=== PATIENT | female | born 1995 | race African-American/Black ===

== ENCOUNTER 2018-10-28 23:45 | Inpatient (IN) ==
--- NOTE | 2018-10-29 00:18 | PROVIDER DOCUMENTATION ---
HPI-Female /OB/Breast - General Chief Complaint: Female Stated Complaint: 38 WEEKS PREG/CONTRACTIONS Time Seen by Provider: 10/29/18 00:02 Source: reports: patient Allergies/Adverse Reactions: Patient Allergies Allergy/AdvReac Type Severity Reaction Status Date / Time No Known Allergies Allergy Verified 01/01/18 15:37 Home Medications: Home Medication List Medication Instructions Recorded Confirmed Last Taken Type NK [No Home Medications] 07/21/17 07/21/17 Unknown History - History of Present Illness-Female /OB Nature of Presenting Problem: 22 yr old F, , at 38 wks gestation, presenting with complaints of contractions and bloody show this evening. The pt reports contractions are now 3-5 minutes apart. Pt denies gush of fluid. She reports adequate movement. Pt receives care at [facility], with Dr. Rosen, and has arrangements to deliver in [place]. Does patient report she is ?: Yes Quality of Pain: reports: other (contractionscontractions 3-5 min apart) Onset/Duration: reports: just prior to arrival Timing: reports: still present Vaginal Bleeding Amount: Small/Light Leakage of Fluid: none - LMP/ History : 1 Para: 0 Care: OB doctor OB Doctor/Clinic: Dr. Rosen CURRENT Problems: none Contractions/Pelvic Pain: reports: strong, regular Contraction Frequency (every____min): 3 Review of Systems - Adult - REVIEW OF SYSTEMS - ADULT Constitutional: reports: no symptoms reported Eyes: reports: no symptoms reported Ears, Nose, Mouth & Throat: reports: no symptoms reported Cardiovascular: reports: no symptoms reported Respiratory: reports: no symptoms reported Gastrointestinal: reports: abdominal pain Genitourinary: reports: no symptoms reported Musculoskeletal: reports: no symptoms reported Integumentary: reports: no symptoms reported Neurological: reports: no symptoms reported Psychiatric: reports: no symptoms reported Past History - Adult - PAST MEDICAL HISTORY-ADULT Review of Records: reports: Nursing Assessment Review Major Childhood Illnesses: reports: denies history Cardiovascular: reports: denies history Respiratory: reports: denies history Gastrointestinal: reports: denies history Obstetrical/Gynecological: reports: denies history Genitourinary: reports: denies history Musculoskeletal: reports: denies history Neurological: reports: denies history Psychiatric: reports: denies history - FAMILY HISTORY Family History: reviewed, not pertinent Physical Exam-General - PHYSICAL EXAM-ADULT Initial Vital Signs Reviewed: Yes - CONSTITUTIONAL General Appearance: appears well, alert, no apparent distress - EYES Eyes: PERRL/EOMI - HEAD, EARS, NOSE, MOUTH & THROAT HENMT: normocephalic/atraumatic, moist mucous membranes - RESPIRATORY Respiratory: chest non-tender, lungs clear, normal breath sounds - CARDIOVASCULAR Cardiovascular: regular rate, rhythm - GASTROINTESTINAL (ABDOMEN) Abdominal Exam: other (gravid abdomen) - MUSCULOSKELETAL Extremity: non-tender, no pedal edema, no calf tenderness - SKIN Integumentary: warm/dry - NEUROLOGIC Neurologic: grossly normal - PSYCHIATRIC Psych/Mental Status: normal mood/affect, oriented x 3 Progress - PLAN OF CARE/RESULTS Progress/Plan/Lab Results: Vital Signs - 8 hr 10/28/18 23:47 Temperature 98.1 F Pulse Rate 82 Respiratory Rate 19 Blood Pressure 145/77 O2 Sat by Pulse Oximetry 98 Laboratory Results - last 24 hr 10/29/18 00:12 WBC 13.02 H RBC 3.90 L Hgb 14.9 Hct 42.2 MCV 108.2 H MCH 38.2 H MCHC 35.3 RDW Std Deviation 13.0 Plt Count 242 MPV 9.4 Immature Gran % (Auto) 0.5 Neut % (Auto) 73.6 Lymph % (Auto) 15.7 L [place] % (Auto) 8.8 Eos % (Auto) 1.2 Baso % (Auto) 0.2 Immature Gran # (Auto) 0.07 H Neut # (Auto) 9.58 H Lymph # (Auto) 2.04 [place] # (Auto) 1.15 H Eos # (Auto) 0.16 Baso # (Auto) 0.02 Orders Category Date Time Status CBC WITH ELECTRONIC DIFF [HEME] Stat Lab 10/29/18 00:12 Completed CMP [COMPREHENSIVE METABOLIC PANEL] [CHEM] Stat Lab 10/29/18 00:12 Received RHOGAM WORKUP [BBK] Stat Lab 10/29/18 00:12 Received TROPONIN T Stat Lab 10/29/18 00:12 Received TYPE & SCREEN [BBK] Stat Lab 10/29/18 00:12 Results UA NIMS W/REFLEX CULT [URINALYSIS] Stat Lab 10/29/18 00:20 Uncollected Result Diagrams: 10/29/18 00:12 - CONSULTS/PCP/HOSPITALIST Notification #1 *Consult/PCP/Hospitalist*: Dr. Pelayo Time Discussed: 00:15 Consult Disposition: other (transfer to [facility]) Departure - Departure Date of Disposition Decision: 10/29/18 Time of Disposition Decision: 01:07 DIAGNOSIS: Abdominal pain during in third trimester Disposition: OTHER 70 Certified Medical Emergency: Emergent Condition: Stable Referrals and Follow-Ups: Park Rosen MD [Primary Care Provider] - - Critical Care Note This patient required my direct & personal management of CC.: No Attestation - Physician/ JETT Attestation Patient care was provided by Advanced Practice Provider:: No The physician spent face to face time with patient:: Yes Advanced Practice Provider documentation review:: Supervising physician onsite and consulted in the evaluation and care of this patient. The physician did have a face to face encounter with the patient.
[2018-10-29 00:44] LABS: BASO# 0.02 X1000 (0.0-0.2); BASO% 0.2 % (0.0-0.8); EOS# 0.16 X1000 (0.0-0.7); EOS% 1.2 % (0.0-10.0); HEMATOCRIT 42.2 % (37.0-47.0); HEMOGLOBIN 14.9 g/dL (12.0-16.0); IMM GRAN# 0.07 X1000 (0.0-0.04); IMM GRAN% 0.5 % (0.0-0.5); LYMPH# 2.04 X1000 (1.2-3.4); LYMPH% 15.7 % (20.5-51.1); MCH 38.2 PG (27-31); MCHC 35.3 g/dL (33-37); MCV 108.2 FL (81-99); MONO# 1.15 X1000 (0.11-0.59); MONO% 8.8 % (1.7-9.3); MPV 9.4 FL (7.4-10.4); NEUT# 9.58 X1000 (1.4-6.5); NEUT% 73.6 % (42.2-75.2); PLT 242 X1000 (130-400); WBC 13.02 X1000 (4.8-10.8)
[2018-10-29 01:16] LABS: AGAP 14; ALB/GLOB RATIO 1.4; ALBUMIN 4.2 g/dL (3.5-5.0); ALKALINE PHOSPHATASE 148 U/L (32-104); BUN 7 mg/dL (8-22); CALCIUM 9.9 mg/dL (8.8-10.2); CHLORIDE 103 mmol/L (98-107); COSMO 273; CREATININE 0.6 mg/dL (0.5-0.9); ESTIMATED GFR > 60; GLUCOSE 87 mg/dL (70-104); GOT 21 U/L (10-30); GPT 15 U/L (10-36); POTASSIUM 3.8 mmol/L (3.5-5.1); SODIUM 138 mmol/L (136-145); TCO2 21 mmol/L (25-35); TOTAL BILIRUBIN 0.61 mg/dL (0.20-1.00); TOTAL PROTEIN 7.2 g/dL (6.3-8.3)
[2018-10-29] MEDS ORDERED: PHENERGAN IV PRN (02:35)
[2018-10-29] MEDS ORDERED: SODIUM CHLORIDE 0.9% INJ PRN (02:45)
[2018-10-29] MEDS ORDERED: PERCOCET-5 PO PRN (02:46)
[2018-10-29] MEDS ORDERED: LR 1,000 ML IV SCH ×2 (03:00→08:00)
[2018-10-29 04:36] LABS: URINE SOURCE VOIDED
[2018-10-29 04:49] LABS: BILIRUBIN URINE NEGATIVE (NEGATIVE); BLOOD URINE NEGATIVE (NEGATIVE); CLARITY CLEAR (CLEAR); COLOR YELLOW; GLUCOSE URINE NEGATIVE (NEGATIVE); KETONE URINE 3+(Large) mg/dL (NEGATIVE); LEUKOCYTES URINE TRACE (NEGATIVE); NITRITE URINE NEGATIVE (NEGATIVE); PROTEIN URINE NEGATIVE (NEGATIVE); SP GRAVITY URINE 1.015; UROBILINOGEN URINE 1 mg/dL
[2018-10-29 05:04] LABS: UR AMPHETAMINES QUAL NONE DETECTED (NONE DETECT); UR BARBITUATES QUAL NONE DETECTED (NONE DETECT); UR BENZODIAZEPIN QUAL NONE DETECTED (NONE DETECT); UR CANNABINOIDS QUAL NONE DETECTED (NONE DETECT); UR COCAINE QUAL NONE DETECTED (NONE DETECT); UR METHADONE QUAL NONE DETECTED (NONE DETECT); UR METHAMPHETAMINE QUAL NONE DETECTED (NONE DETECT); UR OPIATES QUAL NONE DETECTED (NONE DETECT); UR OXYCODONE QUAL NONE DETECTED (NONE DETECT); UR PCP QUAL NONE DETECTED (NONE DETECT); UR PROPOXYPHENE QUAL NONE DETECTED (NONE DETECT); UR TCA QUAL NONE DETECTED (NONE DETECT)
[2018-10-29] MEDS ORDERED: DEMEROL IV ONE (05:48)
[2018-10-29] MEDS ORDERED: PEPCID IV PRN (08:00)
[2018-10-29] MEDS ORDERED: SODIUM CHLORIDE 0.9% INJ SCH (08:00)
[2018-10-29] MEDS ORDERED: KEFZOL 1 GM/D5W 1 GM/50 ML IVPB IV PRN (08:00)
[2018-10-29] MEDS ORDERED: PEPCID PO ONE (08:00)
[2018-10-29] MEDS ORDERED: TYLENOL PO PRN (08:00)
[2018-10-29] MEDS ORDERED: STADOL IV PRN (08:00)
[2018-10-29] MEDS ORDERED: PITOCIN 30 UNITS/NS 30 UNIT/500 ML IV.SOLN IV SCH ×2 (08:00→20:30)
[2018-10-29] MEDS ORDERED: LR 500 ML IV ONE (08:00)
[2018-10-29] MEDS ORDERED: REGLAN PO ONE (08:00)
[2018-10-29] MEDS ORDERED: PEPCID PO PRN (08:00)
[2018-10-29] MEDS ORDERED: ZOFRAN IV PRN (08:00)
[2018-10-29] MEDS ORDERED: NEO-SYNEPHRINE ONE (08:10)
[2018-10-29] MEDS ORDERED: FENTANYL ONE (08:10)
[2018-10-29] MEDS ORDERED: NAROPIN 0.2% ONE (08:10)
[2018-10-29] MEDS ORDERED: FENTANYL-BUPIV-NS 2 MCG-0.1% 250 ML EPIDURAL SCH (09:00)
[2018-10-29] MEDS ORDERED: XYLOCAINE-MPF 1% INJ ONE (12:22)
[2018-10-29] MEDS ORDERED: MINERAL OIL TOP ONE (12:22)
--- NOTE | 2018-10-29 14:23 | HISTORY AND PHYSICAL ---
HISTORY OF PRESENT ILLNESS: Nevaeh is a 22-year-old 1, para 0, at 38 and 3/7th weeks gestation, consistent with 18 week ultrasound, who presents to Labor and delivery in early labor. She presented at 3 cm with bloody show. Rating her pain 10/10 with contractions q.4 hours minutes and a category 1 tracing. She was watched overnight with analgesics and in the morning at 4 cm and 70% per RN. Continued bloody show. She was admitted for labor. PREVIOUS MEDICAL HISTORY: Negative. PREVIOUS SURGICAL HISTORY: Negative. HISTORY: This is the index consistent with G1 and late care. SOCIAL HISTORY: Negative for smoking, alcohol, or drugs. Single. MEDICATIONS: vitamins. ALLERGIES TO MEDICINES: None. FAMILY HISTORY: Hypertension and diabetes. DELI COOK HISTORY: Pertinent for normal Pap smear 2 years ago. PHYSICAL EXAMINATION: GENERAL: This is a well nourished, well developed young woman appearing her stated age. HEART: Regular rate and rhythm. LUNGS: Nonlabored breathing. ABDOMEN: Gravid to the xiphoid and contractions on the monitors. EXTREMITIES: Without clubbing, cyanosis, edema. The pelvic exam is 4 to 5 cm. Rupture of membranes was performed with clear blood stained fluid. ASSESSMENT: A 22-year-old 1, para 0, at 38 and 3/7th weeks gestation in labor. 1. Group B negative. 2. Rh positive. 3. Ruptured membranes, clear fluid. 4. Epidural in place. 5. Category 1 tracing. 6. Anticipate normal spontaneous vaginal delivery of estimate weigh 3500 g baby, vertex.
--- NOTE | 2018-10-29 15:11 | OB/GYN PROGRESS NOTE ---
Progress Note OB - . Patient Problems: Current Active Problems Problem Status Onset Abdominal pain during in third trimester Acute OB Progress Note: Vital Signs - 24 hr 10/28/18 23:47 10/29/18 01:09 10/29/18 01:34 Temperature 98.1 F 98.2 F 96.9 F L Pulse Rate 82 86 79 Respiratory Rate 19 16 18 Blood Pressure 145/77 121/66 136/86 O2 Sat by Pulse Oximetry 98 98 10/29/18 07:45 10/29/18 11:18 10/29/18 14:09 Temperature 97.7 F 96.5 F L 96.6 F L Pulse Rate 76 64 77 Respiratory Rate 22 17 16 Blood Pressure 112/66 125/65 136/66 O2 Sat by Pulse Oximetry 98 100 99 Laboratory Results - last 24 hr 10/29/18 10/29/18 10/29/18 00:12 00:12 00:12 WBC 13.02 H RBC 3.90 L Hgb 14.9 Hct 42.2 MCV 108.2 H MCH 38.2 H MCHC 35.3 RDW Std Deviation 13.0 Plt Count 242 MPV 9.4 Immature Gran % (Auto) 0.5 Neut % (Auto) 73.6 Lymph % (Auto) 15.7 L [place] % (Auto) 8.8 Eos % (Auto) 1.2 Baso % (Auto) 0.2 Immature Gran # (Auto) 0.07 H Neut # (Auto) 9.58 H Lymph # (Auto) 2.04 [place] # (Auto) 1.15 H Eos # (Auto) 0.16 Baso # (Auto) 0.02 Sodium 138 Potassium 3.8 Chloride 103 Carbon Dioxide 21 L Anion Gap 14 BUN 7 L Creatinine 0.6 Estimated GFR/1.73 m2 > 60 BUN/Creatinine Ratio 12 Glucose 87 Calculated Osmolality 273 Calcium 9.9 Total Bilirubin 0.61 AST 21 ALT 15 Alkaline Phosphatase 148 H Troponin T Total Protein 7.2 Albumin 4.2 Globulin 3.0 Albumin/Globulin Ratio 1.4 Urine Source Urine Color Urine Clarity Urine pH Ur Specific [place] Urine Protein Urine Ketones Urine Blood Urine Nitrite Urine Bilirubin Urine Urobilinogen Urine WBC Urine Glucose Urine Opiates Screen Ur Oxycodone Screen Urine Methadone Screen U Propoxyphene Qual Ur Barbituates Screen Ur Tricyclics Screen Ur Phencyclidine Scrn Ur Amphetamines Screen U Methamphetamines Scrn U Benzodiazepines Scrn Urine Cocaine Screen U Cannabinoids Screen Blood Type ABO/Rh O POSITIVE Blood Type Confirm Antibody Screen RhIG Candidate? NO 10/29/18 10/29/18 10/29/18 00:12 00:12 01:05 WBC RBC Hgb Hct MCV MCH MCHC RDW Std Deviation Plt Count MPV Immature Gran % (Auto) Neut % (Auto) Lymph % (Auto) [place] % (Auto) Eos % (Auto) Baso % (Auto) Immature Gran # (Auto) Neut # (Auto) Lymph # (Auto) [place] # (Auto) Eos # (Auto) Baso # (Auto) Sodium Potassium Chloride Carbon Dioxide Anion Gap BUN Creatinine Estimated GFR/1.73 m2 BUN/Creatinine Ratio Glucose Calculated Osmolality Calcium Total Bilirubin AST ALT Alkaline Phosphatase Troponin T < 0.010 Total Protein Albumin Globulin Albumin/Globulin Ratio Urine Source Urine Color Urine Clarity Urine pH Ur Specific [place] Urine Protein Urine Ketones Urine Blood Urine Nitrite Urine Bilirubin Urine Urobilinogen Urine WBC Urine Glucose Urine Opiates Screen Ur Oxycodone Screen Urine Methadone Screen U Propoxyphene Qual Ur Barbituates Screen Ur Tricyclics Screen Ur Phencyclidine Scrn Ur Amphetamines Screen U Methamphetamines Scrn U Benzodiazepines Scrn Urine Cocaine Screen U Cannabinoids Screen Blood Type O POSITIVE ABO/Rh Blood Type Confirm O POSITIVE Antibody Screen NEGATIVE RhIG Candidate? 10/29/18 10/29/18 04:18 04:18 WBC RBC Hgb Hct MCV MCH MCHC RDW Std Deviation Plt Count MPV Immature Gran % (Auto) Neut % (Auto) Lymph % (Auto) [place] % (Auto) Eos % (Auto) Baso % (Auto) Immature Gran # (Auto) Neut # (Auto) Lymph # (Auto) [place] # (Auto) Eos # (Auto) Baso # (Auto) Sodium Potassium Chloride Carbon Dioxide Anion Gap BUN Creatinine Estimated GFR/1.73 m2 BUN/Creatinine Ratio Glucose Calculated Osmolality Calcium Total Bilirubin AST ALT Alkaline Phosphatase Troponin T Total Protein Albumin Globulin Albumin/Globulin Ratio Urine Source VOIDED Urine Color YELLOW Urine Clarity CLEAR Urine pH 8.0 Ur Specific [place] 1.015 Urine Protein NEGATIVE Urine Ketones 3+(Large) A Urine Blood NEGATIVE Urine Nitrite NEGATIVE Urine Bilirubin NEGATIVE Urine Urobilinogen 1 Urine WBC TRACE A Urine Glucose NEGATIVE Urine Opiates Screen NONE DETECTED Ur Oxycodone Screen NONE DETECTED Urine Methadone Screen NONE DETECTED U Propoxyphene Qual NONE DETECTED Ur Barbituates Screen NONE DETECTED Ur Tricyclics Screen NONE DETECTED Ur Phencyclidine Scrn NONE DETECTED Ur Amphetamines Screen NONE DETECTED U Methamphetamines Scrn NONE DETECTED U Benzodiazepines Scrn NONE DETECTED Urine Cocaine Screen NONE DETECTED U Cannabinoids Screen NONE DETECTED Blood Type ABO/Rh Blood Type Confirm Antibody Screen RhIG Candidate? PN G1 Labor SVE 890/0 FHT Cat 1 Epidural in, Pt comfortable OT at 2mu/min Continue Labor
[2018-10-29] MEDS ORDERED: AMPICILLIN 2 GM/NS 2 GM/100 ML IVPB IV ONE (18:12)
--- NOTE | 2018-10-29 19:14 | OB/GYN PROGRESS NOTE ---
Progress Note OB - . Patient Problems: Current Active Problems Problem Status Onset Active labor at term Acute Abdominal pain during in third trimester Acute OB Progress Note: Vital Signs - 24 hr 10/28/18 23:47 10/29/18 01:09 10/29/18 01:34 Temperature 98.1 F 98.2 F 96.9 F L Pulse Rate 82 86 79 Respiratory Rate 19 16 18 Blood Pressure 145/77 121/66 136/86 O2 Sat by Pulse Oximetry 98 98 10/29/18 07:45 10/29/18 11:18 10/29/18 14:09 Temperature 97.7 F 96.5 F L 96.6 F L Pulse Rate 76 64 77 Respiratory Rate 22 17 16 Blood Pressure 112/66 125/65 136/66 O2 Sat by Pulse Oximetry 98 100 99 10/29/18 17:54 10/29/18 18:08 Temperature 98.2 F 99.1 F Pulse Rate 100 H Respiratory Rate Blood Pressure 134/64 O2 Sat by Pulse Oximetry 100 Laboratory Results - last 24 hr 10/29/18 10/29/18 10/29/18 00:12 00:12 00:12 WBC 13.02 H RBC 3.90 L Hgb 14.9 Hct 42.2 MCV 108.2 H MCH 38.2 H MCHC 35.3 RDW Std Deviation 13.0 Plt Count 242 MPV 9.4 Immature Gran % (Auto) 0.5 Neut % (Auto) 73.6 Lymph % (Auto) 15.7 L [place] % (Auto) 8.8 Eos % (Auto) 1.2 Baso % (Auto) 0.2 Immature Gran # (Auto) 0.07 H Neut # (Auto) 9.58 H Lymph # (Auto) 2.04 [place] # (Auto) 1.15 H Eos # (Auto) 0.16 Baso # (Auto) 0.02 Sodium 138 Potassium 3.8 Chloride 103 Carbon Dioxide 21 L Anion Gap 14 BUN 7 L Creatinine 0.6 Estimated GFR/1.73 m2 > 60 BUN/Creatinine Ratio 12 Glucose 87 Calculated Osmolality 273 Calcium 9.9 Total Bilirubin 0.61 AST 21 ALT 15 Alkaline Phosphatase 148 H Troponin T Total Protein 7.2 Albumin 4.2 Globulin 3.0 Albumin/Globulin Ratio 1.4 Urine Source Urine Color Urine Clarity Urine pH Ur Specific [place] Urine Protein Urine Ketones Urine Blood Urine Nitrite Urine Bilirubin Urine Urobilinogen Urine WBC Urine Glucose Urine Opiates Screen Ur Oxycodone Screen Urine Methadone Screen U Propoxyphene Qual Ur Barbituates Screen Ur Tricyclics Screen Ur Phencyclidine Scrn Ur Amphetamines Screen U Methamphetamines Scrn U Benzodiazepines Scrn Urine Cocaine Screen U Cannabinoids Screen Blood Type ABO/Rh O POSITIVE Blood Type Confirm Antibody Screen RhIG Candidate? NO 10/29/18 10/29/18 10/29/18 00:12 00:12 01:05 WBC RBC Hgb Hct MCV MCH MCHC RDW Std Deviation Plt Count MPV Immature Gran % (Auto) Neut % (Auto) Lymph % (Auto) [place] % (Auto) Eos % (Auto) Baso % (Auto) Immature Gran # (Auto) Neut # (Auto) Lymph # (Auto) [place] # (Auto) Eos # (Auto) Baso # (Auto) Sodium Potassium Chloride Carbon Dioxide Anion Gap BUN Creatinine Estimated GFR/1.73 m2 BUN/Creatinine Ratio Glucose Calculated Osmolality Calcium Total Bilirubin AST ALT Alkaline Phosphatase Troponin T < 0.010 Total Protein Albumin Globulin Albumin/Globulin Ratio Urine Source Urine Color Urine Clarity Urine pH Ur Specific [place] Urine Protein Urine Ketones Urine Blood Urine Nitrite Urine Bilirubin Urine Urobilinogen Urine WBC Urine Glucose Urine Opiates Screen Ur Oxycodone Screen Urine Methadone Screen U Propoxyphene Qual Ur Barbituates Screen Ur Tricyclics Screen Ur Phencyclidine Scrn Ur Amphetamines Screen U Methamphetamines Scrn U Benzodiazepines Scrn Urine Cocaine Screen U Cannabinoids Screen Blood Type O POSITIVE ABO/Rh Blood Type Confirm O POSITIVE Antibody Screen NEGATIVE RhIG Candidate? 10/29/18 10/29/18 04:18 04:18 WBC RBC Hgb Hct MCV MCH MCHC RDW Std Deviation Plt Count MPV Immature Gran % (Auto) Neut % (Auto) Lymph % (Auto) [place] % (Auto) Eos % (Auto) Baso % (Auto) Immature Gran # (Auto) Neut # (Auto) Lymph # (Auto) [place] # (Auto) Eos # (Auto) Baso # (Auto) Sodium Potassium Chloride Carbon Dioxide Anion Gap BUN Creatinine Estimated GFR/1.73 m2 BUN/Creatinine Ratio Glucose Calculated Osmolality Calcium Total Bilirubin AST ALT Alkaline Phosphatase Troponin T Total Protein Albumin Globulin Albumin/Globulin Ratio Urine Source VOIDED Urine Color YELLOW Urine Clarity CLEAR Urine pH 8.0 Ur Specific [place] 1.015 Urine Protein NEGATIVE Urine Ketones 3+(Large) A Urine Blood NEGATIVE Urine Nitrite NEGATIVE Urine Bilirubin NEGATIVE Urine Urobilinogen 1 Urine WBC TRACE A Urine Glucose NEGATIVE Urine Opiates Screen NONE DETECTED Ur Oxycodone Screen NONE DETECTED Urine Methadone Screen NONE DETECTED U Propoxyphene Qual NONE DETECTED Ur Barbituates Screen NONE DETECTED Ur Tricyclics Screen NONE DETECTED Ur Phencyclidine Scrn NONE DETECTED Ur Amphetamines Screen NONE DETECTED U Methamphetamines Scrn NONE DETECTED U Benzodiazepines Scrn NONE DETECTED Urine Cocaine Screen NONE DETECTED U Cannabinoids Screen NONE DETECTED Blood Type ABO/Rh Blood Type Confirm Antibody Screen RhIG Candidate? Patient doing well. No complaints. Denied fever, abdominal pain VSS; afebrile SVE per RN: 9.5/ +1 station FHTs: Cat 1; 140s baseline [place]: contractions q 2-4min Pitocin used for augmentation of labor -AROM done this AM. Patient recv'd 2g Ampicillin due to elevated recent temp. No overt signs/sx of IAI noted. Will continue to monitor -Patient rec'vd 50mg Demerol this AM. Informed RN to notify peds given long half-life of Demerol and anticipated delivery tonight - records reviewed
[2018-10-29] MEDS ORDERED: PITOCIN IM PRN (20:26)
[2018-10-29] MEDS ORDERED: M-M-R II VACCINE SUBQ ONE (20:26)
[2018-10-29] MEDS ORDERED: MINERAL OIL PO PRN (20:26)
[2018-10-29] MEDS ORDERED: BOOSTRIX VACCINE IM ONE (20:26)
[2018-10-29] MEDS ORDERED: PERI MEDS (DERMOPLAST/NUPERCAINAL/TUCKS) MISC PRN (20:26)
[2018-10-29] MEDS ORDERED: XYLOCAINE-MPF 1% INJ PRN (20:26)
[2018-10-29] MEDS ORDERED: CYTOTEC PO PRN (20:26)
[2018-10-29] MEDS ORDERED: NORCO-5 PO PRN (20:26)
[2018-10-29] MEDS ORDERED: BENADRYL PO PRN (20:26)
[2018-10-29] MEDS ORDERED: ZOFRAN PO PRN (20:29)
[2018-10-29] MEDS ORDERED: COLACE PO PRN (20:29)
[2018-10-29] MEDS ORDERED: PITOCIN 20 UNITS/NS 20 UNITS/1,000 ML IV.SOLN IV SCH (20:30)
[2018-10-29] MEDS ORDERED: NARCAN IV PRN (20:30)
--- NOTE | 2018-10-30 03:47 | OPERATIVE NOTE ---
PROCEDURE DATE: 10/29/2018 PREOPERATIVE DIAGNOSES: 1. A 22-year-old, G1, P0, at 38 weeks and 3 days. 2. Active labor. POSTOPERATIVE DIAGNOSES: 1. A 22-year-old, G1, P1-0-0-1, at 38 weeks and 3 days. 2. Active labor, delivered. PROCEDURE: Spontaneous vaginal delivery. ATTENDING DOCTOR: Dr. Jesse Anderson. ESTIMATED BLOOD LOSS: Approximately 100 mL. DRAINS: Bladder drained prior to delivery. PROCEDURE DETAILS: A 22-year-old, G1, P0 was admitted at 30 weeks and 3 days in late labor. The patient's labor was augmented with Pitocin and AROM. She progressed to complete dilation with epidural present and had a spontaneous vaginal delivery on 10/29/2018 at 2007 hours. The patient delivered a live female infant, 's 8 and 10 at one and five minutes respectively. Weight 6 pounds 5 ounces. Head delivered 1st in HECTOR position, followed by anterior and posterior shoulder without difficulty and atraumatically, followed by rest of body. A compound right upper extremity was noted that delivered with the shoulder. Infant was placed on maternal abdomen. Delayed umbilical cord clamping was done for approximately 30 seconds. Umbilical cord was then doubly clamped and cut, and infant was transferred to the baby warmer for further evaluation given that the patient received 50 mg of Demerol earlier this morning on 10/29/2018. IV Pitocin was initiated to facilitate uterine contractibility. Placenta was then delivered grossly intact with three-vessel cord present. Inspection of the cervix, vagina, and perineum was done revealing no lacerations. The patient tolerated delivery well. EBL approximately 100 mL. Sponge count correct x2. [facility]
[2018-10-30 07:11] LABS: BASO# 0.02 X1000 (0.0-0.2); BASO% 0.1 % (0.0-0.8); EOS# 0.06 X1000 (0.0-0.7); EOS% 0.3 % (0.0-10.0); HEMATOCRIT 39.1 % (37.0-47.0); HEMOGLOBIN 13.1 g/dL (12.0-16.0); IMM GRAN# 0.06 X1000 (0.0-0.04); IMM GRAN% 0.3 % (0.0-0.5); LYMPH# 2.25 X1000 (1.2-3.4); LYMPH% 10.3 % (20.5-51.1); MCH 37.8 PG (27-31); MCHC 33.5 g/dL (33-37); MCV 112.7 FL (81-99); MONO# 2.23 X1000 (0.11-0.59); MONO% 10.2 % (1.7-9.3); MPV 10.1 FL (7.4-10.4); NEUT% 78.8 % (42.2-75.2); PLT 249 X1000 (130-400); RBC 3.47 XMIL (4.2-5.4); RDW 13.3 % (11.5-14.5); WBC 21.92 X1000 (4.8-10.8)
[2018-10-30 07:37] LABS: BANDS 5 % (0-1); EOS 1 % (1-10); LYMPHS 10 % (21-51); MONO 8 % (1-9); SEGS 76 % (42-75)
[2018-10-30 07:39] LABS: POLYCHROM OCCASIONAL
[2018-10-30] MEDS: MOTRIN PO PRN ×2 (11:33→22:33)
[2018-10-30] MEDS: PRECARE PO SCH (11:33)
--- NOTE | 2018-10-30 12:20 | OB/GYN PROGRESS NOTE ---
Progress Note OB - . Patient Problems: Current Active Problems Problem Status Onset (spontaneous vaginal delivery) Acute OB Progress Note: Vital Signs - 24 hr 10/29/18 14:09 10/29/18 17:54 10/29/18 18:08 Temperature 96.6 F L 98.2 F 99.1 F Pulse Rate 77 100 H Respiratory Rate 16 Blood Pressure 136/66 134/64 Blood Pressure [Right Arm] O2 Sat by Pulse Oximetry 99 100 10/29/18 19:11 10/29/18 20:22 10/29/18 20:32 Temperature 99.4 F 97.5 F L Pulse Rate 87 116 H 119 H Respiratory Rate 18 16 20 Blood Pressure 139/70 150/74 Blood Pressure [Right Arm] 150/74 143/75 O2 Sat by Pulse Oximetry 100 99 100 10/29/18 20:42 10/29/18 20:52 10/29/18 21:02 Temperature Pulse Rate 110 H 99 H 104 H Respiratory Rate 20 16 18 Blood Pressure Blood Pressure [Right Arm] 148/82 149/77 150/79 O2 Sat by Pulse Oximetry 100 100 99 10/29/18 21:11 10/29/18 21:12 10/29/18 21:22 Temperature Pulse Rate 94 H 90 Respiratory Rate 18 16 18 Blood Pressure 151/69 Blood Pressure [Right Arm] 177/77 O2 Sat by Pulse Oximetry 100 100 10/30/18 00:23 10/30/18 04:00 10/30/18 08:15 Temperature 97.2 F L 97.2 F L 98 F Pulse Rate 103 H 97 H 84 Respiratory Rate 18 18 20 Blood Pressure 123/69 129/70 124/69 Blood Pressure [Right Arm] O2 Sat by Pulse Oximetry 98 98 100 Laboratory Results - last 24 hr 10/29/18 10/30/18 16:44 05:06 WBC 21.92 H RBC 3.47 L Hgb 13.1 Hct 39.1 MCV 112.7 H MCH 37.8 H MCHC 33.5 RDW Std Deviation 13.3 Plt Count 249 MPV 10.1 Immature Gran % (Auto) 0.3 Neut % (Auto) 78.8 H Lymph % (Auto) 10.3 L [place] % (Auto) 10.2 H Eos % (Auto) 0.3 Baso % (Auto) 0.1 Immature Gran # (Auto) 0.06 H Neut # (Auto) 17.30 H Lymph # (Auto) 2.25 [place] # (Auto) 2.23 H Eos # (Auto) 0.06 Baso # (Auto) 0.02 Segmented Neutrophils 76 H Band Neutrophils 5 H Lymphocytes 10 L Monocytes 8 Eosinophils 1 Polychromasia OCCASIONAL Macrocytosis 2+ RPR NON-REACTIVE S: Patient without complaints. Denied fever, chills, N/V, SOB, or chest pain. Voiding without difficulty. Formula-feeding; but desires to breast-feed. O: Gen: NAD; AAOx3 CV: RRR Pulm: CTAB; no rhonchi, wheezing, or rales Abd: soft; NTTP; non-distended; fundus firm and below umbilicus Ext: no LE TTP Labs: reviewed A&P: 22yo s/p at 38w3d due to labor, 1. PPD#1 -Discussed benefits of , tips, frequency, and expectations. Patient desires to breast-feed.
--- NOTE | 2018-10-31 07:58 | OB/GYN PROGRESS NOTE ---
Progress Note OB - . Patient Problems: Current Active Problems Problem Status Onset (spontaneous vaginal delivery) Acute OB Progress Note: Vital Signs - 24 hr 10/30/18 08:15 10/30/18 16:30 10/31/18 00:05 Temperature 98 F 96.8 F L 97 F L Pulse Rate 84 98 H 90 Respiratory Rate 20 18 16 Blood Pressure 124/69 130/75 107/52 O2 Sat by Pulse Oximetry 100 98 S. Patient resting in bed with no complaints. She is bottle feeding, ambulating well, tolerating regular foods, urinating well and has light bleeding. She does not want to go home today. O. Vitals WNL HEENT: normocephalic, atraumatic Abdoment, soft, NT, uterus below the umbilicus. Ext: NTTP, scant edema A/P 22yo s/p PPD 2. patient doing well. Encourage ambulation D/C home tomorrow.
[2018-10-31] MEDS: PRECARE PO SCH (11:36)
[2018-10-31] MEDS: MOTRIN PO PRN (18:41)
[2018-11-01 08:26] VITALS: BP 130/60
[2018-11-01] MEDS: PRECARE PO SCH (08:47)
--- NOTE | 2018-11-01 09:42 | DISCHARGE SUMMARY ---
ADMISSION DATE: 10/29/2018 DISCHARGE DATE: 11/01/2018 ADMISSION DIAGNOSIS: A 22-year-old, G1, P0 at 38 and 3/7 weeks in active labor. FINAL DIAGNOSIS: A 22 -year-old, G1, P0 at 38 and 3/7 weeks in active labor with a spontaneous vaginal delivery of a female , 6 pounds 5 ounces with of 8 and 10 at 20:07 on 10/29/2018. PROCEDURE: Spontaneous vaginal delivery. BRIEF HISTORY: The patient is a 22-year-old, G1, P0 at 38 and 3/7 weeks who had been under the care of Dr. Park Rosen presents with uterine contractions and dilated to 3 cm. After watching overnight, the patient progressed to 4 cm dilatation. PAST MEDICAL HISTORY: Unremarkable. PAST SURGICAL HISTORY: None. OB HISTORY: G1 with late care. SOCIAL HISTORY: Negative for smoking, alcohol, or drugs presently. She is single. MEDICATIONS: vitamins. ALLERGIES: None. FAMILY HISTORY: Significant for diabetes and hypertension. GRAPHICS MANAGER HISTORY: Normal Pap smear 2 years ago. PHYSICAL EXAM: Well-nourished, well-developed young woman. Heart: Regular rate and rhythm. Lungs: Clear to auscultation. Abdomen: Gravid and contractions were noted on the uterine toco. Extremities: No clubbing, cyanosis, or edema. Pelvic: The cervix was dilated 4 to 5 cm. Rupture of membranes was performed with clear blood stained fluid. ASSESSMENT/PLAN: A 22-year-old female, G1, P0 at 03/07/7 weeks in active labor. The patient is noted to be Rh positive, Category 1 tracing and rupture of membranes with clear fluid. Group B strep culture was negative. HOSPITAL COURSE: Patient moved towards vaginal delivery of a female infant, 6 pounds 5 ounces with of 8 and 10 at 20:07 on 10/29/2018. Her course was unremarkable and on day #3, she was doing well, ambulating, mild lochia. I felt at this time she could be discharged home. Her hemoglobin was 13.1 and hematocrit was 39.1. DISCHARGE: Patient will be discharged home. However, follow up in [address] Rosen or if she wants to be seen here we will be glad to see her. Patient given instructions on pelvic rest for 6 weeks. Patient instructed to call for heavy vaginal bleeding. She was given prescription for [place] 5mg, dispense 20, Colace 100 mg, dispensed 30, and Motrin 800 mg dispensed 30. cc: Cesar Kate III, MD
== END 2018-11-01 11:40 | disposition home or self-care (01) | DRG 807 ==
LOC: ED 23:45 → P.LD 10-29 01:11 → P.OPLD 10-29 01:31 → P.LD 10-29 01:32
PROVIDERS: ADMIT Obstetrics & Gynecology; ATTEND Obstetrics & Gynecology